=== PATIENT | male | born 1975 | race Caucasian/White ===

== ENCOUNTER 2019-02-28 18:57 | Emergency (ER) | payer OTHER ==
[2019-02-28] MEDS ORDERED: IBUPROFEN 800 MG TABLET PO STA (19:26)
--- NOTE | 2019-02-28 19:28 | ED Physician Documentation ---
PD HPI LOWER EXT INJURY - Stated complaint Stated Complaint: RT LEG INJ - Chief complaint Chief Complaint: Ext Problem - History obtained from History obtained from: Patient - History of Present Illness PD HPI LOW EXT INJURY LOCATION: Right, Lower leg, Ankle Type of injury: Fall, Twist Where injury occurred: Other (frisbee golf) Timing - onset: How many hours ago (1) Timing - duration: Hours (1) Timing - details: Abrupt onset Pain level max: 8 Pain level now: 8 Improved by: Rest, Ice Worsened by: Moving, Palpating Associated symptoms: Swelling. No: Weakness, Numbness, Tingling Contributing factors: No: Anticoagulated Recently seen: Not recently seen Review of Systems Constitutional: denies: Fever, Chills Nose: denies: Rhinorrhea / runny nose, Congestion GI: denies: Vomiting Musculoskeletal: denies: Neck pain, Back pain Neurologic: denies: Focal weakness, Numbness, Head injury PD PAST MEDICAL HISTORY - Past Medical History Past Medical History: Yes Cardiovascular: Hypertension - Past Surgical History Past Surgical History: No - Present Medications Home Medications: Ambulatory Orders Medication Instructions Recorded Confirmed Hydrocodone/Acetaminophen 1 - 2 each PO Q6H PRN #14 tablet 02/28/19 [Hydrocodon-Acetaminophen 5-325] Ibuprofen [Motrin] 800 mg PO Q8H PRN #30 tablet 02/28/19 - Allergies Allergies/Adverse Reactions: Allergies Allergy/AdvReac Type Severity Reaction Status Date / Time amoxicillin AdvReac Rash Verified 02/28/19 19:04 - Social History Does the pt smoke?: Yes Smoking Status: Current every day smoker Does the pt drink ETOH?: Yes Does the pt have substance abuse?: No PD ED PE NORMAL - Vitals Vital signs reviewed: Yes - General General: Alert and oriented X 3, No acute distress - HEENT HEENT: Moist mucous membranes - Neck Neck: Supple, no meningeal sign - Cardiac Cardiac: RRR - Respiratory Respiratory: No respiratory distress, Clear bilaterally - Derm Derm: Warm and dry - Extremities Extremities: Other (Right lower extremity tender to palpation over the proximal fibula. Also tender over the medial malleolus of the ankle. Neurovascularly intact. Mild swelling.) - Neuro Neuro: Alert and oriented X 3 - Psych Psych: Normal mood, Normal affect Results - Vitals Vitals: Vital Signs - 24 hr 02/28/19 02/28/19 19:01 21:15 Temperature 36.4 C L Heart Rate 72 78 Respiratory 17 18 Rate Blood Pressure 130/89 H 136/70 H O2 Saturation 100 98 Oxygen O2 Source Room air - Rads (name of study) Right tib-fib Radiology: Prelim report reviewed, EMP read contemporaneously, See rad report (Proximal fibula fracture) Right ankle x-ray Radiology: Prelim report reviewed, EMP read contemporaneously, See rad report (Medial and posterior malleoli fractures) Procedures - Splint (location) Right lower leg Splint applied by: Physician Type of splint: Fiberglass, Short leg, Posterior, Stirrup Other: Patient tolerated well, Neurovascular intact, Crutches provided PD MEDICAL DECISION MAKING - ED course Complexity details: reviewed results, re-evaluated patient, considered differential, d/w patient, d/w senior professional services consultant (Ashley) ED course: 44-year-old male with what appears to be likely based on no fracture. Discussed the case with orthopedics, they recommend a short leg posterior splint with stirrup and follow-up in the office. The splint was applied. Patient tolerated well. He is visiting from the [facility] and will follow up with orthopedics there. Neurovascularly intact after splint application patient counseled regarding signs and symptoms for which I believe and urgent re-evaluation would be necessary. Patient with good understanding of and agreement to plan and is comfortable going home at this time This document was made in part using voice recognition software. While efforts are made to proofread this document, sound alike and grammatical errors may occur. Departure - Departure Disposition: 01 Home, Self Care Clinical Impression: Maisonneuve fracture of right lower extremity Qualifiers: Encounter type: initial encounter Fracture type: closed Fracture alignment: displaced Qualified Code(s): S82.861A - Displaced Maisonneuve's fracture of right leg, initial encounter for closed fracture Condition: Good Health Concerns: ankle pain Plan of Treatment: splint, ortho follow up Care Goals: stabilize injury Assessment: see dx Instructions: ED Fx Lower Ext Follow-Up: Provider,Other [Physician No Access] - Prescriptions: Hydrocodone/Acetaminophen [Hydrocodon-Acetaminophen 5-325] 1 - 2 each PO Q6H PRN #14 tablet PRN Reason: pain Ibuprofen [Motrin] 800 mg PO Q8H PRN #30 tablet PRN Reason: PAIN &/OR FEVER Comments: Return if you worsen. You need to follow up with an orthopedist when you return home next week. This injury will likely need surgery to stabilize the ankle. Do not drink alcohol or drive while on narcotic pain medicine. Note that many narcotic pain relievers also contain tylenol/acetaminophen. Please ensure that your total dose of acetaminophen from all sources does not exceed 3 grams (3000mg) per day. You may constipated on this medication, take a stool softener such as "Colace" twice a day while you are on it. Also recommend a [id number]-lievczp laxative such as senna or MiraLAX any day that you do not have a bowel movement. If you received narcotic pain medication in the emergency department, do not drive or operate machinery for the next 24 hours. Discharge Date/Time: 02/28/19 21:15
--- NOTE | 2019-02-28 20:23 | XRAY Report ---
Reason: injury Procedure Date: 02/28/2019 Accession Number: [id number] / [id number] Procedure: XR - Tib/Fib RT CPT Code: FULL RESULT: EXAM: RIGHT TIBIA/FIBULA RADIOGRAPHY EXAM DATE: 02/28/2019 08:12 PM. CLINICAL HISTORY: Injury. COMPARISON: ANKLE 3 VIEW RT 02/28/2019 7:59 PM. TECHNIQUE: 2 views. FINDINGS: Bones: Proximal right fibular vertical oblique fracture 1-2 mm separation. Joints: The visualized knee normal Soft Tissues: Soft tissue swelling. IMPRESSION: Proximal right fibular fracture. See ankle report [facility]
--- NOTE | 2019-02-28 20:23 | XRAY Report ---
Reason: injury Procedure Date: 02/28/2019 Accession Number: [id number] / [id number] Procedure: XR - Ankle 3 View RT CPT Code: FULL RESULT: EXAM: RIGHT ANKLE RADIOGRAPHY EXAM DATE: 02/28/2019 08:12 PM. CLINICAL HISTORY: Injury. Pain, twisting injury COMPARISON: LEG LOWER RT 02/28/2019 7:59 PM. TECHNIQUE: 3 views. FINDINGS: Bones: Medial malleolus fracture along the inner surface, tip. No significant diastases. Posterior malleolar fracture Joints: Effusion. No subluxations. The ankle mortise is normally aligned. Soft Tissues: Soft tissue swelling. IMPRESSION: Medial and posterior malleolar fracture [facility]
[2019-02-28 21:15] VITALS: BP 136/70
== END 2019-02-28 21:15 | disposition home or self-care (01) ==
LOC: ED 18:57
DX: S82.861A Displaced Maisonneuve's fracture of right leg, initial encounter for closed fracture (principal); W17.89XA Other fall from one level to another, initial encounter; X50.1XXA Overexertion from prolonged static or awkward postures, initial encounter; Y93.74 Activity, frisbee; F17.200 Nicotine dependence, unspecified, uncomplicated; Z86.79 Personal history of other diseases of the circulatory system
CPT/HCPCS: 29515; 73590; 73610; 99283; A9270